=== PATIENT | male | born 2000 | race African-American/Black ===

== ENCOUNTER 2024-07-05 10:59 | Emergency (ER) | payer OTHER ==
[~2024-07-05] VITALS: Ht 172.7 cm; Wt 67.3 kg
[2024-07-05 11:04] VITALS: BP 125/80; PULSE 100; RESP 16; TEMP 98.7; O2SAT 100
[2024-07-05] MEDS ORDERED: ACET-66 PO (11:54)
[2024-07-05] MEDS ORDERED: IBUP-1554 PO (11:54)
[2024-07-05] MEDS ORDERED: CEPH-558 PO (11:54)
== END 2024-07-05 12:03 | disposition home or self-care (01) ==
LOC: EMS 10:59
DX: J02.9 Acute pharyngitis, unspecified (principal)
CPT/HCPCS: 87430; 99283